=== PATIENT | male | born 1990 | race African-American/Black ===

== ENCOUNTER 2023-10-05 15:18 | Emergency (ER) | payer BC, OTHER ==
[~2023-10-05] VITALS: Ht 180.3 cm; Wt 75.0 kg
[2023-10-05 15:47] VITALS: O2SAT 100
[2023-10-05] MEDS ORDERED: CEFAZOLIN 1000MG PREMIX 50 ML IV ONE (18:15)
[2023-10-05] MEDS ORDERED: TETANUS AND DIPHTHERIA TOX/PF 0.5ML SYR (ADULT) IM ONE (18:15)
[2023-10-05 18:33] VITALS: BP 131/86; PULSE 82; RESP 16; TEMP 98.9
[2023-10-05 18:37] LABS: BASOPHILS % 0.4 % (0.0-2.0); DIFFERENTIAL COMMENT 0; EOSINOPHILS % 1.3 % (0.0-5.0); HEMATOCRIT. 40.5 % (42.0-52.0); HEMOGLOBIN. 12.8 g/dL (14.0-18.0); LYMPHOCYTES % 18.9 % (20.0-50.0); MEAN CORPUSCULAR HEMOGLOBIN 23.5 pg (28.0-32.0); MEAN CORPUSCULAR HGB CONC 31.7 g/dL (31.0-37.0); MEAN PLATELET VOLUME 7.9 fl (7.4-10.4); MONOCYTES % 7.4 % (2.0-8.0); PLATELET 266 x1000/uL (130-400); RED BLOOD CELL COUNT 5.47 mill/uL (4.7-6.1); RED CELL DISTRIBUTION WIDTH 15.3 % (11.6-14.6); WHITE BLOOD COUNT 7.4 x1000/uL (4.5-11.0)
[2023-10-05] MEDS ORDERED: TETANUS, DIPHTHERIA, PERTUSSIS VAC/PF 0.5ML (>10YR OLD) IM ONE (18:45)
[2023-10-05 19:14] LABS: CHLORIDE 107 mEq/L (98-107); POTASSIUM 3.2 mEq/L (3.5-5.1); SODIUM 141 mEq/L (136-145)
[2023-10-05 19:15] LABS: CALCIUM 9.3 mg/dL (8.7-10.4); CARBON DIOXIDE 28 mEq/L (21-32); GLUCOSE 116 mg/dL (70-105); PROTEIN TOTAL 7.4 g/dL (6.0-8.3); UREA NITROGEN BLOOD 8 mg/dL (9-23)
[2023-10-05 19:16] LABS: ALANINE AMINOTRANSFERASE 22 IU/L (10-49); ALBUMIN 4.4 g/dL (3.2-4.8); ASPARTATE AMINOTRANSFERASE 28 IU/L (<34); BILIRUBIN TOTAL 2.9 mg/dL (0.1-1.0)
[2023-10-05 19:48] LABS: PARTIAL THROMBOPLASTIN TIME 26.4 sec (23.4-31.0)
== END 2023-10-05 18:48 | disposition short-term general hospital (02) ==
LOC: ER 15:18
DX: S21.131A Puncture wound without foreign body of right front wall of thorax without penetration into thoracic cavity, initial encounter (principal); F12.10 Cannabis abuse, uncomplicated; W18.39XA Other fall on same level, initial encounter; Y93.89 Activity, other specified; Y92.89 Other specified places as the place of occurrence of the external cause; Y99.8 Other external cause status
CPT/HCPCS: 36415; 71045; 80053; 85025; 86850; 86900; 90714; 99291; J0690

== ENCOUNTER 2025-09-11 09:30 | Emergency (ER) | payer MEDICAID ==
[~2025-09-11] VITALS: Ht 180.3 cm; Wt 82.0 kg
[2025-09-11 09:42] VITALS: O2SAT 100
[2025-09-11] MEDS ORDERED: BO1 TP (10:40)
[2025-09-11] MEDS ORDERED: CEPH500C2 MT (10:40)
[2025-09-11] MEDS ORDERED: LIDOCAINE HCL 1% 20ML VIAL INFIL ONE (10:45)
[2025-09-11] MEDS ORDERED: CEFTRIAXONE SODIUM 500MG VIAL IM ONE (10:45)
[2025-09-11 11:20] VITALS: BP 135/88; PULSE 94; RESP 14; TEMP 36.8; O2SAT 100
== END 2025-09-11 11:29 | disposition home or self-care (01) ==
LOC: ER 09:30
DX: L02.411 Cutaneous abscess of right axilla (principal); I10 Essential (primary) hypertension; F10.90 Alcohol use, unspecified, uncomplicated; F12.90 Cannabis use, unspecified, uncomplicated; Y90.9 Presence of alcohol in blood, level not specified
CPT/HCPCS: 99283